=== PATIENT | female | born 1970 | race Caucasian/White ===

== ENCOUNTER 2024-03-10 10:54 | Outpatient (AMB) | payer OTHER, SELFPAY ==
[2024-03-10 11:34] VITALS: BP 140/74; PULSE 67; TEMP 36.8; O2SAT 98; BMI 30.7
--- NOTE | 2024-03-10 11:34 | MHC.OFFWIV ---
Intake Vital Signs 03/10/24 11:34 Height 5 ft 2 in Weight 168 lb BMI 30.7 BP 140/74 H Blood Pressure Location Lt brachial Position Sitting Pulse 67 Pulse Source Pulse Oximeter Temp 98.2 F Temp Source Oral Pulse Oximetry (%) 98 Oxygen Delivery Method Room Air Intake Visit Reasons: EP fell Tuesday hit head at home Intake Note: Pt is here today took a fall at home last Tuesday, Rt foot swollen and painful Patient Tobacco Use Status: Former Tobacco user Allergies No Known Allergies [No Known Allergies*] Allergy (Unverified 03/10/24 11:35) HPI EP fell Tuesday hit head at home HPI Details Patient is 54-year-old female who tripped walking down the stairs almost a week ago now when her flip-flop rolled underneath her, and she fell striking her right armendariz on the wooden banister. She reports that the area bruised and swelled up, and she had gotten some abrasions and a laceration. She has been trying to do good topical care, and elevates her legs at night. However when she is on her feet during the day, the area has begun to get increasingly swollen. It also has started to get red and inspector of weights and measures that area, and tender. The swelling is now extending from the armendariz down to her ankle and foot. Walking aggravates her symptoms. She did hit her head also during the fall, on a step. She reports that she did get a bumped the back of her head, but no significant headache, dizziness or blurred vision, altered mental status, disequilibrium, slurred speech or difficulty speaking, numbness or tingling, or other significant associated symptoms suggestive of a TBI. She denies fever or chills, weakness or dizziness, malaise or myalgias, or other significant associated symptoms. [facility] Social History Patient Tobacco Use Status: Former Tobacco user Review of Systems Const All systems reviewed & are unremarkable except as noted in HPI and below Physical Exam Vital Signs: Last Vital Signs Temp 98.2 F 03/10/24 11:34 Pulse 67 03/10/24 11:34 BP 140/74 H 03/10/24 11:34 Pulse Ox 98 03/10/24 11:34 Oxygen Delivery Method Room Air 04/13/24 11:34 BMI result Body Mass Index 30.7 Const General: cooperative, healthy appearing, comfortable, no acute distress, alert, awake, Physically active and well groomed; No anxious, diaphoretic, ill appearing, intoxicated appearing, poor hygiene or tired appearing Nutritional Appearance: average body habitus Limitations: no limitations Resp Effort & Inspection: normal respiratory effort, able to speak in complete sentences, no audible wheezes, no cough, no grunting, not labored, no nasal flaring, no retractions and symmetric chest movement Extrem Other: Patient has an antalgic gait favoring her right leg. She has pitting 2 to 3+ edema to the extremity to just distal from the knee. The ankle and foot as well as the mid shaft of her tibia has the most edema. There is ecchymosis to the tibia also, and healing abrasions, with underlying induration. Just medial to this area there is an eschar where there was apparently a laceration/abrasion that is swollen to a lesser extent, but has redness and warmth to this area, and is tender to the touch. Elbow/forearm/wrist images: 1. Central eschar, likely laceration, with surrounding edema to a lesser extent, erythema and warmth. 2. 3. Ecchymotic and edematous, with superficial abrasions. It is most indurated here Right lower extremity: full ROM and foot (The abrasion/laceration over the mid armendariz has erythema and warmth, indurate) Details: edema, abrasion (Ecchymosis, edema and abrasions to the mid armendariz and mid calf), ecchymosis and vascular exam Details: dorsalis pedis pulse present, posterior tibial pulse present and normal capillary refill; not cool and no cyanosis Left lower extremity: normal to inspection, full ROM and foot Details: vascular exam Details: posterior tibial pulse present Psych Appearance: grossly normal Mental Status: mental status grossly normal Speech and movement: Normal speech and movement present Affect: normal affect Attitude: cooperative Thought process: Normal thought process present Insight: Good insight present (Psych) Judgement: Good judgement present (Psych) Assessment & Plan Assessment & Plan (1) Cellulitis: Code(s): L03.90 - Cellulitis, unspecified Qualifiers: Site of cellulitis: extremity Site of cellulitis of extremity: lower extremity Laterality: right Qualified Code(s): L03.115 - Cellulitis of right lower limb Plan: Patient is 54-year-old female who tripped walking down the stairs when her flip-flop rolled underneath her, and she fell striking her right armendariz on the wooden banister. She reports that the area bruised and swelled up, and she had gotten some abrasions and a laceration. 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 She reports that she elevates it at night and it is normal size again in the morning. However there has been some redness and warmth appearing around 1 area where she has a central eschar, and her edema is now pitting, and extends to the upper tibia, just a few cm under the knee. It is becoming pronounced in the ankle and foot, and even some ecchymosis in the arch of her foot. I told her that her leg is becoming cellulitic, and that the extent of the edema is worrisome for a DVT, although the most swollen indurated area does not have the redness and warmth. I told her that the safest thing for her to do was to go to the emergency department to get an ultrasound and rule out a clot, and explained that it could become life threatening if it was to travel to her lungs. She declined this AMA, and preferred that I write her for a course of antibiotics outpatient. I did agree to write her for a course of doxycycline, for complete spectrum coverage, but told her that she needed to elevate her legs as much as she could over the next day or 2, and if the swelling was not resolving, or if she was worsening in any way, then she should go to the emergency department for an evaluation, likely including an ultrasound. If she does not go to the emergency department over the weekend, I advised that she return to the walk-in on Tuesday for re-evaluation, and she agreed to this. Orders: Orders XR tibia fibula RT 2V Today S80.11XA - Contusion of right lower leg, initial encounter Medications: New doxycycline monohydrate 100 mg PO BID 10 days PRN 20 caps 0RF cellulitis Coding Level of Care Code Est Pt Level 4 (35162) Diagnoses Cellulitis of right lower extremity L03.115 Site of cellulitis: extremity Site of cellulitis of extremity: lower extremity Laterality: right
== END 2024-03-10 13:52 | disposition home or self-care (01) ==
PROVIDERS: Visit Provider Physician Assistant Medical
DX: L03.115 Cellulitis of right lower limb (principal)
CPT/HCPCS: 99051; 99214

== ENCOUNTER 2024-03-10 12:11 | Outpatient (REF) | payer OTHER, SELFPAY ==
--- NOTE | ~2024-03-10 | XR_ITS ---
EXAMINATION: XR TIBIA AND FIBULA, RIGHT CLINICAL INFORMATION: Contusion COMPARISON: None available. TECHNIQUE: AP and lateral views of the right tibia and fibula were obtained. FINDINGS: The bones and soft tissues are normal. No fracture. No osseous lesions. Calcaneal spurs. XR/XR tibia fibula RT 2V IMPRESSION: Normal right tibia and fibula.
== END 2024-03-10 12:12 | disposition home or self-care (01) ==
LOC: HO.HMGCX 12:11
PROVIDERS: Visit Provider Physician Assistant Medical
DX: S80.11XA Contusion of right lower leg, initial encounter (principal)
CPT/HCPCS: 73590